=== PATIENT | male | born 1970 | race African-American/Black ===

== ENCOUNTER 2020-03-27 13:05 | Emergency (ER) | payer SELFPAY ==
[2020-03-27 13:09] VITALS: BP 146/95
--- NOTE | 2020-03-27 14:03 | ER Document Report ---
HPI - HPI Time Seen by Provider: 03/27/20 13:54 Notes: CHIEF COMPLAINT: Trichomonas exposure HPI: 50-year-old male with multiple sex partners presenting for trichomonas exposure. Patient states his girlfriend went to the doctor had a Pap smear and was told she had trichomonas. Patient states he has had slight discomfort with urination over the last 48 hours. Denies discharge, rash or testicular pain ROS: See HPI - all other systems were reviewed and are otherwise negative Constitutional: no fever GI: no vomiting, no diarrhea, no abdominal pain : + dysuria Integumentary: no rash Allergy: no hives MEDICATIONS: I agree with the patient medications as charted by the RN. ALLERGIES: I agree with the allergies as charted by the RN. PAST MEDICAL HISTORY/PAST SURGICAL HISTORY: Reviewed and agree as charted by RN. SOCIAL HISTORY: Reviewed and agree as charted by RN. FAMILY HISTORY: No significant familial comorbid conditions directly related to patient complaint EXAM: Reviewed vital signs as charted by RN. CONSTITUTIONAL: Alert and oriented and responds appropriately to questions. Well-appearing; well-nourished HEAD: Normocephalic; atraumatic EYES: Conjunctivae clear, sclerae non-icteric ENT: normal nose; no rhinorrhea; moist mucous membranes NECK: Supple without meningismus CARD: symmetric distal pulses RESP: Normal chest excursion without splinting or tachypnea ABD/GI: Normal bowel sounds; non-distended; soft, non-tender, no rebound, no guarding; no palpable organomegaly or masses. : Circumcised male. No visible urethral discharge. No visible rashes. Bilateral testicles are descended and nontender. No palpable masses BACK: The back appears normal and is non-tender to palpation, there is no CVA tenderness EXT: Normal ROM in all joints; non-tender to palpation; no cyanosis, no effusions, no edema SKIN: Normal color for age and race; warm; dry; good turgor; no acute lesions noted NEURO: Moves all extremities equally; Motor and sensory function intact PSYCH: The patient's mood and manner are appropriate. Grooming and personal hygiene are appropriate. MDM: 50-year-old male with probable trichomonal exposure. Will write prescription for Flagyl 2 g one-time dosing. Patient states he had already drunk beer this morning so he will hold off until this evening to take his medication. We did discuss the side effects of the medication. We will add gonorrhea and Chlamydia testing. Patient does not wish to be treated for those at this time. He is aware he must notify all sexual partners of need for treatment or testing Past Medical History - Social History Smoking Status: Unknown if Ever Smoked Family History: Reviewed & Not Pertinent Course - Vital Signs Vital signs: Temp Pulse Resp BP Pulse Ox 98.7 F 88 18 146/95 H 95 03/27/20 13:08 03/27/20 13:08 03/27/20 13:08 03/27/20 13:08 03/27/20 13:08 Discharge - Discharge Clinical Impression: Trichomonas contact Condition: Stable Disposition: HOME, SELF-CARE Instructions: Trichomonas Infection ([facility]) Additional Instructions: Take the Flagyl as a one-time dose this evening as discussed. No sexual intercourse with anyone for 10 days. Use condoms. Notify any sexual partners in the last 1 to 2 months of need for testing or treatment as men can be asymptomatic carriers of trichomonas. You have gonorrhea and chlamydial culture s pending if either are positive you will be notified by the follow-up nurse Prescriptions: Metronidazole [Flagyl 500 mg Tablet] 2,000 mg PO ONCE #4 tablet
[2020-03-27 16:00] LABS: CHLAM PCR NOT DETECTED (NOT DETECT)
== END 2020-03-27 14:20 | disposition home or self-care (01) ==
LOC: ER 13:05
DX: Z20.2 Contact with and (suspected) exposure to infections with a predominantly sexual mode of transmission (principal)
CPT/HCPCS: 87491; 87591; 99283